=== PATIENT | female | born 1995 | race Two or more races ===

== ENCOUNTER 2018-06-22 12:40 | Outpatient (CLI) | payer OTHER | END 2018-06-22 14:20 | disposition home or self-care (01) | LOC: OBT 12:40 → L-D 12:42 → OBT 14:20 | DX: O36.8130 Decreased fetal movements, third trimester, not applicable or unspecified (principal); Z3A.38 38 weeks gestation of pregnancy | CPT/HCPCS: 76818 ==

== ENCOUNTER 2018-06-25 08:47 | Inpatient (IN) | payer OTHER ==
[2018-06-25 10:21] LABS: RUPTURE FETAL MEMBRANES POSITIVE (NEGATIVE)
[2018-06-25] MEDS ORDERED: MISOPROSTOL 200 MCG TAB PR (12:00)
[2018-06-25] MEDS ORDERED: METHYLERGONOVINE 0.2 MG INJ IM (12:00)
[2018-06-25] MEDS ORDERED: BUTORPHANOL 2 MG INJ IV (12:00)
[2018-06-25] MEDS ORDERED: CARBOPROST 250 MCG INJ IM (12:00)
[2018-06-25] MEDS ORDERED: LIDOCAINE 1% (MPF) 30 ML INJ INJ (12:00)
[2018-06-25] MEDS ORDERED: OXYTOCIN 30 UNITS/LR 500 ML IV ×2 (12:00)
[2018-06-25] MEDS: LACTATED RINGER'S 1,000 ML IV* ×3 (13:14→23:42)
[2018-06-25 13:26] LABS: ADD MAN DIFF? NO
[2018-06-25 13:29] LABS: BASOPHILS % 0.1 % (0.0-2.0); EOSINOPHILS % 0.3 % (0.0-7.0); HEMATOCRIT 34.7 % (37.0-47.0); HEMOGLOBIN 11.1 g/dl (12.0-16.0); LYMPHOCYTES # 1.9 10^3/ul (0.8-2.9); LYMPHOCYTES % 21.6 % (15.0-51.0); MEAN CORPUSCULAR HEMOGLOBIN 27.8 pg (29.0-33.0); MEAN PLATELET VOLUME 9.6 fl (7.4-10.4); MONOCYTE # 0.4 10^3/ul (0.3-0.9); MONOCYTES % 4.8 % (0.0-11.0); NEUTROPHIL # 6.4 10^3/ul (1.6-7.5); NEUTROPHILS % 72.2 % (39.0-77.0); PLATELET COUNT 316 10^3/UL (140-415); RED BLOOD COUNT 3.99 10^6/ul (4.20-5.40); RED CELL DISTRIBUTION WIDTH 14.1 % (11.5-14.5)
[2018-06-25 13:29] LABS: WHITE BLOOD COUNT 8.9 10^3/ul (4.8-10.8)
[2018-06-25 14:17] LABS: INR 0.87; PARTIAL THROMBOPLASTIN TIME 30.3 Sec (25.0-35.0); PROTIME 11.9 Sec (11.9-14.9); PT RATIO 0.9
[2018-06-25] MEDS: DINOPROSTONE 10 MG VAG SUPP VAG ×2 (15:27→15:29)
[2018-06-25 21:21] LABS: RAPID PLASMA REAGIN NONREACTIVE (NR)
[2018-06-25] MEDS ORDERED: FENTAnyl 2MCG/ML-ROPIV 0.2% 100 ML (23:01)
[2018-06-25] MEDS: AMPICILLIN 2 GM/NS (PMX) 100 ML IV (23:24)
[2018-06-25] MEDS ORDERED: ONDANSETRON 4 MG INJ IV (23:30)
[2018-06-25] MEDS ORDERED: DIPHENHYDRAMINE 50 MG INJ IV (23:30)
[2018-06-25] MEDS ORDERED: NALOXONE (0.4 MG/ML) INJ IV (23:30)
[2018-06-26] MEDS: AMPICILLIN 1 GM/NS (PMX) 50 ML IV ×2 (03:17→06:26)
[2018-06-26] MEDS: LACTATED RINGER'S 1,000 ML IV* (04:53)
[2018-06-26] MEDS: OXYTOCIN 30 UNITS/LR 500 ML IV ×4 (06:23→11:55)
[2018-06-26] MEDS: FENTAnyl 2MCG/ML-ROPIV 0.2% 100 ML BAG EPI ×2 (06:25→07:14)
[2018-06-26] MEDS ORDERED: OXYTOCIN 30 UNITS/LR 500 ML IV (12:00)
[2018-06-26] MEDS ORDERED: NACL 0.9% 3 ML SYG IV (12:00)
[2018-06-26] MEDS ORDERED: HYDROCODONE/APAP (5/325) TAB PO ×2 (12:00)
[2018-06-26] MEDS ORDERED: METHYLERGONOVINE 0.2 MG INJ IM (12:00)
[2018-06-26] MEDS ORDERED: ACETAMINOPHEN 325 MG TAB PO (12:00)
[2018-06-26] MEDS ORDERED: CARBOPROST 250 MCG INJ IM (12:00)
[2018-06-26] MEDS ORDERED: OXYCODONE/ASPIRIN (4.88/325) TAB PO ×2 (12:00)
[2018-06-26] MEDS ORDERED: MISOPROSTOL 200 MCG TAB PR (12:00)
[2018-06-26] MEDS: IBUPROFEN 600 MG TAB PO ×2 (12:35→18:03)
[2018-06-26] MEDS: BENZOCAINE 20% 56 ML SPRAY TOP (13:48)
[2018-06-26] MEDS: DIBUCAINE 1% 30 GM OINT PR (13:48)
[2018-06-26] MEDS: WITCH HAZEL/GLYCERIN PAD PR (13:48)
[2018-06-26] MEDS: ONDANSETRON 4 MG INJ IV (13:49)
[2018-06-26] MEDS: LANOLIN 7 GM TUBE TOP (13:49)
[2018-06-26] MEDS: SENNA/DOCUSATE NA (8.6MG/50MG) TAB PO (21:14)
[2018-06-27] MEDS: IBUPROFEN 600 MG TAB PO ×5 (00:20→23:17)
[2018-06-27 06:40] LABS: ADD MAN DIFF? NO
[2018-06-27 06:42] LABS: BASOPHILS % 0.2 % (0.0-2.0); EOSINOPHILS # 0.1 10^3/ul (0.0-0.5); EOSINOPHILS % 0.6 % (0.0-7.0); HEMATOCRIT 29.9 % (37.0-47.0); HEMOGLOBIN 9.6 g/dl (12.0-16.0); LYMPHOCYTES # 3.3 10^3/ul (0.8-2.9); LYMPHOCYTES % 30.2 % (15.0-51.0); MEAN CORPUSCULAR HEMOGLOBIN 28.3 pg (29.0-33.0); MEAN CORPUSCULAR HGB CONC 32.1 g/dl (32.0-37.0); MEAN CORPUSCULAR VOLUME 88.2 fl (82.0-101.0); MONOCYTE # 0.8 10^3/ul (0.3-0.9); MONOCYTES % 7.6 % (0.0-11.0); NEUTROPHIL # 6.6 10^3/ul (1.6-7.5); NEUTROPHILS % 60.4 % (39.0-77.0); PLATELET COUNT 285 10^3/UL (140-415); RED BLOOD COUNT 3.39 10^6/ul (4.20-5.40); RED CELL DISTRIBUTION WIDTH 14.3 % (11.5-14.5)
[2018-06-27 06:42] LABS: WHITE BLOOD COUNT 10.9 10^3/ul (4.8-10.8)
[2018-06-27] MEDS: SENNA/DOCUSATE NA (8.6MG/50MG) TAB PO ×2 (08:50→21:36)
[2018-06-27] MEDS ORDERED: OXYTOCIN 30 UNITS/LR 500 ML IV (20:43)
[2018-06-27] MEDS ORDERED: BENZOCAINE 20% 56 ML SPRAY TOP (21:00)
[2018-06-27] MEDS ORDERED: LANOLIN 7 GM TUBE TOP (21:00)
[2018-06-27] MEDS ORDERED: OXYCODONE/ASPIRIN (4.88/325) TAB PO ×2 (21:00)
[2018-06-27] MEDS ORDERED: ACETAMINOPHEN 325 MG TAB PO (21:00)
[2018-06-27] MEDS ORDERED: ONDANSETRON 4 MG INJ IV (21:00)
[2018-06-27] MEDS ORDERED: SENNA/DOCUSATE NA (8.6MG/50MG) TAB PO (21:00)
[2018-06-27] MEDS ORDERED: HYDROCODONE/APAP (5/325) TAB PO ×2 (21:00)
[2018-06-27] MEDS ORDERED: DIBUCAINE 1% 30 GM OINT PR (21:00)
[2018-06-27] MEDS ORDERED: WITCH HAZEL/GLYCERIN PAD PR (21:00)
[2018-06-27 22:09] LABS: HEPATITIS B SURFACE ANTIGEN NEGATIVE (NEGATIVE)
[2018-06-28] MEDS ORDERED: IBUPROFEN 600 MG TAB PO
[2018-06-28] MEDS: IBUPROFEN 600 MG TAB PO ×2 (05:44→11:50)
[2018-06-28] MEDS: SENNA/DOCUSATE NA (8.6MG/50MG) TAB PO (08:35)
[2018-06-28] MEDS: MEASLES,MUMPS,RUBELLA VACCINE INJ SC* (09:00)
[2018-06-29] MEDS ORDERED: MEASLES,MUMPS,RUBELLA VACCINE INJ SC* (09:00)
== END 2018-06-28 13:25 | disposition home or self-care (01) | DRG 775 ==
LOC: OBT 08:47 → PP1 06-26 12:02 → L-D 08:47 → OBT 11:00 → L-D 11:33
PROVIDERS: Obstetrics & Gynecology
PROC: 10E0XZZ Delivery of Products of Conception, External Approach (ICD-10-PCS; principal; 2018-06-26)
PROC: 0HQ9XZZ Repair Perineum Skin, External Approach (ICD-10-PCS; 2018-06-26)
DX: O69.81X0 Labor and delivery complicated by cord around neck, without compression, not applicable or unspecified (principal); O70.0 First degree perineal laceration during delivery; Z3A.39 39 weeks gestation of pregnancy; Z37.0 Single live birth
CPT/HCPCS: 62319; 76815; 76818; 84112; 85025; 85610; 85730; 86592; 86850; 86900; 86901; 87340; 99464